=== PATIENT | male | born 1980 | race African-American/Black ===

== ENCOUNTER 2021-10-18 12:19 | Emergency (ER) | payer MEDICAID, OTHER ==
[~2021-10-18] VITALS: Ht 177.8 cm; Wt 100.0 kg
[2021-10-18] MEDS ORDERED: MORPHINE SULFATE 2 MG/ML CPJ (NOT FOR IM USE) IV ONE (13:00)
[2021-10-18 14:33] LABS: BASOPHILS % 0.1 % (0.0-2.0); HEMATOCRIT. 34.9 % (42.0-52.0); HEMOGLOBIN. 11.6 g/dL (14.0-18.0); LYMPHOCYTES % 17.5 % (20.0-50.0); MEAN CORPUSCULAR HEMOGLOBIN 30.1 pg (28.0-32.0); MEAN PLATELET VOLUME 7.8 fl (7.4-10.4); MONOCYTES % 9.7 % (2.0-8.0); NEUTROPHILS % 71.7 % (40.0-76.0); PLATELET 218 x1000/uL (130-400); RED BLOOD CELL COUNT 3.84 mill/uL (4.7-6.1); RED CELL DISTRIBUTION WIDTH 13.8 % (11.6-14.6)
[2021-10-18 14:43] LABS: CHLORIDE 105 mEq/L (98-107)
[2021-10-18] MEDS ORDERED: MORPHINE SULFATE 2 MG/ML CPJ (NOT FOR IM USE) IV NR (15:00)
[2021-10-18] MEDS ORDERED: POTASSIUM CHLORIDE 20MEQ TABLET SR PO NR (15:30)
[2021-10-18 18:17] VITALS: BP 113/65
[2021-10-18] MEDS ORDERED: IOHEXOL-350 100 ML BOTTLE ONE (19:45)
== END 2021-10-18 18:19 | disposition home or self-care (01) ==
LOC: ER 12:19
DX: S09.8XXA Other specified injuries of head, initial encounter (principal); R07.9 Chest pain, unspecified; I51.9 Heart disease, unspecified; F81.9 Developmental disorder of scholastic skills, unspecified; V43.62XA Car passenger injured in collision with other type car in traffic accident, initial encounter; Y93.89 Activity, other specified; Y92.410 Unspecified street and highway as the place of occurrence of the external cause
CPT/HCPCS: 36415; 70450; 71045; 71275; 80053; 83880; 84484; 85025; 96374; 99285; J2270; Q9967; Z7610